=== PATIENT | male | born 1970 | race Caucasian/White ===

== ENCOUNTER 2017-03-09 10:46 | Emergency (ER) | payer OTHER ==
--- NOTE | 2017-03-09 12:32 | EDPHY ---
H & P Stated Complaint: LUQ pain since ;poss constipated;last [facility] Time Seen by Provider: 03/09/17 12:31 HPI/ROS: HPI: This is a 46-year-old male presents with Chief Complaint: Left flank pain since Friday;poss constipated;last nl BM Location: Left flank Quality: Pain Duration: 2 days Signs and Symptoms: no fever, + nausea, no vomiting, no hematemesis, no blood in stool, no abdominal bloating, no diarrhea, + back pain, no urinary symptoms, no testicular/groin pain, no indigestion, no chest pain, no shortness of breath Timing: Sudden, constant Severity: 8/10 Context: Patient has strong healthy, presents with left flank pain, that was sudden onset, constant in nature, nonradiating, moderate to severe intensity and currently 8/10 for the last 2 days. He reports he has been taking ibuprofen as well as his 's Percocet with transient relief of pain. Denies any fever/chills/hematuria/groin pain/testicular swelling/dysuria. He has not had any heavy lifting/injury. His last normal bowel movement was . He is passing flatus. Denies vomiting but does have some mild nausea this morning. He was able to eat normally yesterday. Today he has not eaten anything at all. No Prior abdominal surgical history or kidney stone. Modifying Factors: See above Comment: ROS: see HPI Constitutional: No fever, no chills, no weight loss Eyes: No blurred vision Respiratory: No shortness of breath, no cough Cardiovascular: No chest pain, no palpitations Gastrointestinal: + nausea, no vomiting, no diarrhea, no hematemesis, no blood in stool Genitourinary: No dysuria, no blood in urine Extremities: No myalgias, no edema Neurologic: No weakness, no numbness Skin: No rashes, no petechiae Hematologic: No bruising, no bleeding MEDICAL/SURGICAL/SOCIAL HISTORY: Medical history: Generally healthy. Does not take any regular medications. Surgical history: Denies Social history: . CONSTITUTIONAL: Extremely well-appearing and nontoxic adult white male, awake and alert, no obvious distress HEENT: Atraumatic and normocephalic, PERRL, EOMI. Tympanic membranes clear. Oropharynx clear, no exudate and moist pink mucosa. Airway patent. No lymphadenopathy. No meningismus. Cardiovascular: Normal S1/S2, regular rate, regular rhythm, without murmur rub or gallop. PULMONARY/CHEST: Symmetrical and nontender. Clear to auscultation bilaterally. Good air movement. No accessory muscle usage. ABDOMEN: Soft, nondistended, hypoactive bowel sounds heard, no rebound, no guarding, no peritoneal signs, no masses or organomegaly.+ left CVAT. EXTREMITIES: 2/2 pulses, strength 5/5, no deformities, no clubbing, no cyanosis or edema. NEUROLOGICAL: no focal neuro deficits. GCS 15. SKIN: Warm and dry, no erythema. no rash. Good capillary refill. Source: Patient Exam Limitations: No limitations - Personal History Current Tetanus Diphtheria and Acellular Pertussis (TDAP): Yes - Medical/Surgical History Other PMH: neg by hx - Social History Smoking Status: Never smoked Constitutional: Initial Vital Signs Temperature (C) 36.7 C 03/09/17 10:50 Heart Rate 94 03/09/17 10:50 Respiratory Rate 16 03/09/17 10:50 Blood Pressure 158/105 H 03/09/17 10:50 O2 Sat (%) 98 03/09/17 10:50 O2 Delivery Mode Room Air Allergies/Adverse Reactions: No Known Allergies Allergy (Unverified 03/09/17 10:50) Home Medications: Medication Instructions Recorded Polyethylene Glycol 3350 [Miralax 17 gm PO DAILY #7 pkt 03/09/17 17 gm (*)] Medical Decision Making - Diagnostics Imaging Results: Imaging Impressions Abdomen X-Ray 03/09/17 12:32 Impression: Query constipation with no other acute abdominal localizing features identified. ED Course/Re-evaluation: Acute abdominal series and urinalysis ordered Given Bentyl and Flexeril with adequate relief of pain Afebrile and no systemic signs. Patient advises that he would like to hold off on IV access to obtain labs and CT abdomen and pelvis scan imaging to start off. Urinalysis is completely unremarkable including no blood, RBCs, signs of infection X-ray my read shows no opacity, effusion, pneumothorax, obstruction. Shows large stool burden in the right colon with dilated loops of bowel. Reassessed patient who reports that his pain has significantly decreased and he prefers to go home with Mag citrate. This patient was seen under the supervision of my secondary supervising physician. I evaluated care for this patient independently. Discussed this patient with Dr. Sharma who did not see the patient. Differential Diagnosis: Abdominal pain including but not limited to diverticulitis, muscular strain, kidney stone, gastritis and urinary tract infection. - Data Points Laboratory Results: 03/09/17 13:07 Urine Color YELLOW Urine Appearance CLEAR Urine pH 5.0 (5.0-7.5) Ur Specific [place] 1.026 (1.002-1.030) Urine Protein NEGATIVE (NEGATIVE) Urine Ketones NEGATIVE (NEGATIVE) Urine Blood NEGATIVE (NEGATIVE) Urine Nitrate NEGATIVE (NEGATIVE) Urine Bilirubin NEGATIVE (NEGATIVE) Urine Urobilinogen NEGATIVE EU EU (0.2-1.0) Ur Leukocyte Esterase NEGATIVE (NEGATIVE) Urine Glucose NEGATIVE (NEGATIVE) Medications Given: Discontinued Medications Cyclobenzaprine HCl (Flexeril) 10 mg PO EDNOW ONE Stop: 03/09/17 13:22 Last Admin: 03/09/17 13:35 Dose: 10 mg Dicyclomine HCl (Bentyl) 20 mg PO EDNOW ONE Stop: 03/09/17 13:22 Last Admin: 03/09/17 13:35 Dose: 20 mg Magnesium Citrate (Magnesium Citrate) 150 ml PO ONCE ONE Stop: 03/09/17 13:41 Last Admin: 03/09/17 13:43 Dose: 150 ml Departure - Departure Disposition: Home, Routine, Self-Care Clinical Impression: Constipation Qualifiers: Constipation type: unspecified constipation type Qualified Code(s): K59.00 - Constipation, unspecified Condition: Good Instructions: Constipation (DC), Obstipation (ED) Additional Instructions: Please drink at least 8-10 glasses of water daily. Eat a diet high in fiber that includes fruits and vegetables. Take half of the Mag citrate and if no bowel movement; repeat in 6 hr. No improvement in abdominal pain in the next 24 hr or fever, intractable nausea vomiting and worsening abdominal pain; please return to the emergency room for evaluation. Referrals: RICARDO RICK [Primary Care Provider] - As per Instructions Prescriptions: Polyethylene Glycol 3350 [Miralax 17 gm (*)] 17 gm PO DAILY #7 pkt
[2017-03-09] MEDS ORDERED: DICYCLOMINE 10 MG CAP PO ONE (13:21)
[2017-03-09] MEDS ORDERED: CYCLOBENZAPRINE 10 MG TAB PO ONE (13:21)
[2017-03-09] MEDS ORDERED: MAGNESIUM CITRATE 300 ML BOTTLE PO ONE (13:40)
[2017-03-09] MEDS ORDERED: ONDANSETRON 4 MG/2 ML VIAL IVP ONE (14:17)
[2017-03-09] MEDS ORDERED: NS 1,000 ML IV ONE ×2 (14:17)
[2017-03-09 14:38] LABS: PLATELET COUNT 184 10^3/uL (150-400)
[2017-03-09] MEDS ORDERED: IOPAMIDOL (ISOVUE-300) 100 ML BTL ONE (14:53)
[2017-03-09] MEDS ORDERED: HYDROmorphONE/DILAUDID 1 MG/ML INJ ONE (15:37)
[2017-03-09] MEDS ORDERED: HYDROmorphONE/DILAUDID 1 MG/ML INJ IVP ONE (15:40)
[2017-03-09 15:45] VITALS: RESP 16; TEMP 98.1
[2017-03-09] MEDS ORDERED: TAMSULOSIN HCL 0.4 MG CAP PO ONE (16:00)
[2017-03-09] MEDS ORDERED: KETOROLAC 30 MG/1 ML SDV IVP ONE (16:06)
[2017-03-09] MEDS ORDERED: OXYCODONE/APAP 5/325MG PREPACK#4 BTL TAKEHOME ONE (17:02)
[2017-03-09] MEDS ORDERED: PROMETHAZINE 25 MG PREPACK #4 BTL TAKEHOME ONE (17:02)
[2017-03-09 17:48] VITALS: BP 133/87; PULSE 94; O2SAT 93
== END 2017-03-09 17:48 | disposition home or self-care (01) ==
DX: N20.1 Calculus of ureter (principal); K59.00 Constipation, unspecified; E86.9 Volume depletion, unspecified
CPT/HCPCS: 96374; J1170; J1885; J2405; Q9967

== ENCOUNTER 2017-03-14 12:54 | Observation (INO) | payer OTHER ==
--- NOTE | 2017-03-14 14:15 | SOAPPROG ---
<Ann Marie Cooper - Last Filed: 03/14/17 14:19> SOAP Progress Note Assessment/Plan: Assessment: Patient has a 5mm left proximal stone and pain along with severe constipation. He was admitted to the hospitalist for management. Plan: Will arrange ureteroscopy with Dr Jimenez this afternoon. I discussed with Chrissy Graves who did not feel it was necessary to see the patient at the bedside. Also discussed with Dr Grey. 03/14/17 14:19 Objective: Vital Signs Temp Pulse Resp BP Pulse Ox 36.6 C 14 153/96 H 94 03/14/17 13:37 03/14/17 13:37 03/14/17 13:37 03/14/17 13:37 ICD10 Worksheet Patient Problems: Problems Problem Status Onset Ureterolithiasis Acute <Reilly Etienne - Last Filed: 03/18/17 13:55> SOAP Progress Note Assessment/Plan: Assessment: stone as noted Plan: as noted 03/18/17 13:53 Subjective: stone Objective: Vital Signs Temp Pulse Resp BP Pulse Ox 36.5 C 96 18 121/94 H 91 L 03/15/17 08:36 03/15/17 08:36 03/15/17 08:36 03/15/17 08:36 03/15/17 08:36 Laboratory Results 03/14/17 15:00 03/15/17 04:25 PT 14.2 SEC (12.0-15.0) 03/14/17 15:00 INR 1.08 (0.83-1.16) 03/14/17 15:00 Physical Exam - Physical Exam General Appearance: WD/WN ICD10 Worksheet - ICD10 Problem Qualifiers (1) Ureterolithiasis
[2017-03-14] MEDS ORDERED: OXYCODONE/APAP 5/325 TAB PO PRN (14:32)
[2017-03-14] MEDS ORDERED: BISACODYL 10 MG SUPP PR PRN (14:40)
[2017-03-14] MEDS ORDERED: LACTULOSE 20 GM/30 ML UDCUP PO PRN (14:40)
[2017-03-14] MEDS ORDERED: POLYETHYLENE GLYCOL 3350 17 GM PKT PO PRN (14:40)
[2017-03-14] MEDS ORDERED: MAGNESIUM HYDROXIDE 30 ML UDCUP PO PRN (14:40)
[2017-03-14] MEDS ORDERED: 1/2 NS 1,000 ML IV SCH (14:45)
[2017-03-14] MEDS ORDERED: ONDANSETRON DISINTEGRATING 4 MG TAB PO PRN (14:52)
[2017-03-14] MEDS ORDERED: ONDANSETRON 4 MG/2 ML VIAL IVP PRN (14:52)
[2017-03-14] MEDS: traMADol 50 MG TAB PO PRN (15:08)
[2017-03-14] MEDS: ACETAMINOPHEN 500 MG TAB PO PRN (15:09)
[2017-03-14 15:18] LABS: PLATELET COUNT 257 10^3/uL (150-400)
[2017-03-14 15:26] LABS: INR 1.08 (0.83-1.16); PROTIME(PATIENT) 14.2 SEC (12.0-15.0)
--- NOTE | 2017-03-14 15:28 | GHP ---
[f rep st] HISTORY AND PHYSICAL DATE OF ADMISSION: 03/14/2017 CHIEF COMPLAINT: Renal stone. HISTORY OF PRESENT ILLNESS: This is a 46-year-old man, has had a renal stone for about the last week . He was sent in from urology office for a ureteroscopy. He initially presented to the emergency de partment on March 09 at which time, he was found to have a proximal 5 x 5 mm renal stone. He was discharged with Percocet, Toradol with followup with Urology. It was also noted that he had a negati ve urinalysis at that time, mild leukocytosis with a white count of 12 and a creatinine of 1.6. He f ollowed up with Ann Marie Cooper today, pain was still not controlled. He had still not passed the re nal stone. He was thus sent in as a direct admission to the hospital for ureteroscopy. His pain is described as left-sided, sharp, stabbing, radiating to his flank. He has not had any hematuria. He has also not had any fevers or foul-smelling urine. He has noted a slight decrease in his urine outp ut today; however, it had been normal until today. PAST MEDICAL/SURGICAL HISTORY: 1. Adenoidectomy. 2. 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 MEDICATIONS: Please see medication reconciliation. ALLERGIES: No known drug allergies. FAMILY HISTORY: Reviewed and noncontributory. SOCIAL HISTORY: He occasionally drinks alcohol. He does not smoke. REVIEW OF SYSTEMS: Ten-point review of systems is conducted and is negative except per HPI. PHYSICAL EXAMINATION: VITAL SIGNS: Blood pressure 153/96, respiration rate 14, saturating 94% on ro om air, temperature is 36.6. GENERAL: The patient is a very pleasant man who is resting comfortably, in no acute distress HEENT: Shows him to be normocephalic, atraumatic. CARDIOVASCULAR: Shows regu lar rate and rhythm. No murmurs, rubs, or gallops. PULMONARY: Shows lungs clear to auscultation bi laterally. ABDOMEN: Shows him to have a heating pad on the left side of his abdomen. He is holding it. It is, however, soft, nontender. It is mildly distended. He has pain mostly in the left flank area. SKIN: Shows no rash. : Shows no Coronel. NEUROLOGIC: Shows him to be alert and oriented x3. He is moving all extremities. PSYCHIATRIC: Shows normal mood and affect. LABORATORY DATA: Labs are reviewed and summarized as per HPI. DATA: 1. I reviewed his chart including his ED visit as well as Ann Marie Cooper, PACs note. 2. I reviewed his abdominal CT scan that shows a left proximal ureteral calculus with moderate left- sided hydronephrosis measuring 5.5 mm longitudinally. This was a scan that was done with contrast. IMPRESSION/PLAN: 1. Left proximal ureterolithiasis: Plan ureteroscopy today. Appreciate Dr. Jimenez's assistance. Wi ll make him n.p.o. pending this. Will give him half normal saline. Will provide pain control with t ramadol, Percocet, IV morphine. 2. Acute kidney injury: This was noted on the . He did receive Toradol as well as IV contrast on that visit. He has only taken 1 dose of Toradol that was prescribed. Will recheck a stat basic m etabolic panel, and assess his kidney function. Will avoid nephrotoxins and provide IV hydration. 3. Constipation: This is quite severe in the setting of Percocet use. Will provide him an aggressi ve bowel regimen. /[id number]/MODL
[2017-03-14] MEDS ORDERED: NS 1,000 ML IV ONE (16:00)
[2017-03-14] MEDS ORDERED: FAMOTIDINE 20 MG TAB PO PRN (16:02)
[2017-03-14] MEDS ORDERED: ceFAZolin 2 GM/DEXTROSE 100 ML IV ONE (17:30)
[2017-03-14] MEDS ORDERED: ceFAZolin 2 GM/SWFI 2 GM/20 ML SYR IVP ONE (17:30)
[2017-03-14] MEDS ORDERED: ceFAZolin 2 GM/SWFI 20 ML SYR IVP ONE (20:07)
[2017-03-14] MEDS ORDERED: LR 1,000 ML IV ONE (20:13)
[2017-03-14] MEDS ORDERED: fentaNYL 100 MCG/2 ML INJ ONE ×2 (20:38→21:00)
[2017-03-14] MEDS ORDERED: MIDAZOLAM 2 MG/2 ML VIAL ONE (20:39)
[2017-03-14] MEDS ORDERED: PROPOFOL/EMULSION 500 MG/50 ML BOTTLE IV ONE (20:39)
[2017-03-14] MEDS ORDERED: TAMSULOSIN HCL 0.4 MG CAP PO SCH (21:00)
--- NOTE | 2017-03-14 21:04 | PDANEPAE ---
ANE Past Medical History - Pulmonary History Hx Oxygen in Use at Home: No Hx Sleep Apnea: No Sleep Apnea Screening Result - Last Documented: Negative - Endocrine History Hx Diabetes: No ANE Review of Systems Review of Systems: ANE Patient History - Allergies Allergies/Adverse Reactions: No Known Allergies Allergy (Unverified 03/09/17 10:50) - Home Medications Home Medications: Ranitidine HCl 150 mg PO DAILY PRN 03/14/17 [Last Taken 03/08/17] Tamsulosin HCl [Tamsulosin HCl] 0.4 mg PO HS 03/14/17 [Last Taken 03/14/17 06:00 ] - NPO status NPO Since - Liquids (Date): 03/14/17 NPO Since - Liquids (Time): 11:00 NPO Since - Solids (Date): 03/14/17 NPO Since - Solids (Time): 08:00 - Smoking Hx Smoking Status: Never smoked KRISTYN Labs/Vital Signs - Labs Result Diagrams: 03/14/17 15:00 03/14/17 15:00 - Vital Signs Blood Pressure: 151/106 Heart Rate: 77 Respiratory Rate: 20 O2 Sat (%): 97 Height: 172.72 cm Weight: 74.843 kg ANE Physical Exam - Airway Neck exam: FROM Mallampati Score: Class 1 Mouth exam: normal dental/mouth exam - Pulmonary Pulmonary: no respiratory distress, no rales or rhonchi, clear to auscultation - Cardiovascular Cardiovascular: regular rate and rhythym, no murmur, rub, or gallop - ASA Status ASA Status: II, E ANE Anesthesia Plan Anesthesia Plan: GA w LMA
[2017-03-14] MEDS ORDERED: RANITIDINE 50 MG/2 ML VIAL ONE (21:06)
[2017-03-14] MEDS ORDERED: DEXAMETHASONE 4 MG/ML VIAL ONE (21:06)
[2017-03-14] MEDS ORDERED: ONDANSETRON 4 MG/2 ML VIAL ONE (21:06)
[2017-03-14] MEDS ORDERED: KETOROLAC 30 MG/1 ML SDV ONE (21:06)
[2017-03-14] MEDS ORDERED: METOCLOPRAMIDE 10 MG/2 ML VIAL ONE (21:06)
[2017-03-14] MEDS ORDERED: LIDOCAINE 2% 5 ML SDV ONE (21:06)
[2017-03-14] MEDS ORDERED: IOTHALAMATE MEG (CYSTO-CONRAY II) 250 ML VIAL BLADIN ONE (21:23)
[2017-03-14] MEDS ORDERED: LR 500 ML IV PRN (21:45)
[2017-03-14] MEDS ORDERED: METOCLOPRAMIDE 10 MG/2 ML VIAL IVP PRN (21:45)
[2017-03-14] MEDS ORDERED: DEXAMETHASONE 4 MG/ML VIAL IVP PRN (21:45)
[2017-03-14] MEDS ORDERED: PROMETHAZINE HCL 25 MG/ML INJ IVP PRN (21:45)
[2017-03-14] MEDS ORDERED: ALBUTEROL 3 ML DEYVIAL IH PRN (21:45)
[2017-03-14] MEDS ORDERED: fentaNYL 100 MCG/2 ML INJ IVP PRN (21:45)
[2017-03-14] MEDS ORDERED: NALOXONE HCL 0.4 MG/ML INJ IVP PRN (21:45)
--- NOTE | 2017-03-14 21:48 | POSTANESTH ---
Post Anesthetic Evaluation Cardiovascular Status: Normal, Stable, Similar to Pre-Op Cond Respiratory Status: Normal, Stable, Similar to Pre-op Cond. Level of Consciousness/Mental Status: Can Participate in Eval Pain Control: Adequate, Prn Tx Ordered Nausea/Vomiting Control: Adequate, Prn Tx Ordered Complications Possibly Related to Anesthesia: None Noted
[2017-03-14] MEDS: SENNOSIDES/DOCUSATE SODIUM TAB PO SCH (23:25)
[2017-03-15 08:37] VITALS: BP 121/94; PULSE 96; RESP 18; TEMP 97.7; O2SAT 91
[2017-03-15] MEDS: ACETAMINOPHEN 500 MG TAB PO PRN (08:52)
[2017-03-15] MEDS: SENNOSIDES/DOCUSATE SODIUM TAB PO SCH (08:54)
[2017-03-15] MEDS: traMADol 50 MG TAB PO PRN (08:55)
--- NOTE | 2017-03-15 09:41 | GOP ---
[f rep st] OPERATIVE REPORT DATE OF OPERATION: SURGEON: Brennan Jimenez MD PREOPERATIVE DIAGNOSIS: Left obstructing ureteral stone with hydronephrosis, severe, and severe noah l colic. POSTOPERATIVE DIAGNOSIS: Left obstructing ureteral stone with hydronephrosis, severe, and severe hermelinda al colic. PROCEDURE PERFORMED: FINDINGS: SPECIMENS: Stone sent to Pathology for analysis. ESTIMATED BLOOD LOSS: 2 cc. INDICATIONS: The patient is a very pleasant 46-year-old male with a left obstructing ureteral stone, severe flank pain, and he does not feel that he is going to be able to manage this through the nd. He is in severe pain, and he was admitted for pain control, and pain control was poor. Therefor e, we planned an operation to ensure his comfort and to prevent sepsis. A CT scan did note severe hy dronephrosis and a left 5 mm obstructing stone. DESCRIPTION OF PROCEDURE: Patient was identified by name, medical record number, wrist band. Amor t to the operating room, laid supine on the table, prepped and draped in standard surgical fashion. He was placed in lithotomy position. A cystoscope was inserted into the bladder. The entire bladder was visualized. Both ureteral orifices were noted to be in normal location. A 0.038 Glidewire was inserted into the left ureter x2, and ureteroscope was passed up to the level of the stone. The enti re ureter was visualized to ensure no other stones. There was a large amount of debris behind the st one. The stone was laser lithotripsied into sand. Largest fragments were removed. A retrograde pyelogram was performed after the stone was removed, indicating no injury to the ureter, and a JJ stent was passed and noted to curl in the renal pelvis and bladder. Bladder was emptied. Uro-Jet was applied. The patient was awakened from anesthesia, brought to the recovery room in stabl e condition. URINE OUTPUT: Not recorded. DRAINS: JJ stent placed on the left side. /[id number]/MODL
[2017-03-15] MEDS ORDERED: FLU VACC QS 2017-18 (3YR+)/PF 0.5 ML SYR (FLUARIX QUAD) IM ONE (10:50)
--- NOTE | 2017-03-15 13:50 | ASDISCHSUM ---
Discharge Information Plan Status:Home with No Needs Medically Cleared to Leave:03/14/2017 Discharge Date:03/15/2017 01:16 PM CM D/C Disposition:Home, Routine, Self-Care ADT D/C Disposition:Home, Routine, Self-Care Projected Discharge Date:03/15/2017 01:16 PM Transportation at D/C:Self Discharge Delay Reason: Follow-Up Date:03/15/2017 01:16 PM Discharge Slot: Final Diagnosis: Placement Information Patient Contact Information Contact Name:LIGIA Relationship: Address:[address] Work Phone: City:[place] Alternate Phone: [facility]/Zip Code:[place] [address] Email: Financial Information Financial Class:HMO and PPO Plans Primary Plan Desc:[facility] CU PLAN Primary Plan Number:[id number] Secondary Plan Desc: Secondary Plan Number: Assessment Information Case Management Discharge Plan Note Case Management Discharge Discharge Order Complete? Answers: Yes Patient to Obtain Answers: Independently Medications Transportation Arranged Answers: Family/Friends Discharge Comments Notes: 03/15/2017 Case Management Note Pt does not require any needs from case management d/t age and employment status. Discharged home independent. Date Signed: 03/15/2017 11:56 AM Electronically Signed By:Zaira Álvarez RN Intervention Information
--- NOTE | 2017-03-16 04:19 | GDS ---
[f rep st] DISCHARGE SUMMARY DISCHARGE DIAGNOSES: Include: 1. Acute proximal ureterolithiasis on the left. 2. Acute kidney injury. 3. Chronic constipation secondary to narcotics. 4. Dyspepsia, chronic. HISTORY OF PRESENT ILLNESS: A 46-year-old male with known history of renal stones, admitted for elec tive lithotripsy. For details of patient's initial presentation, please see the history and physical dated 03/14/2017. CONSULTATIVE SERVICES: Include Urology. PROCEDURES ON THIS PATIENT: On 03/14/2017, patient underwent ureteroscopy and lithotripsy of left ur eterolithiasis without complication. A JJ stent was placed on the left. HOSPITAL COURSE BY ISSUE: 1. Acute left ureterolithiasis. The patient was admitted, hydrated, made n.p.o. in preparation for procedure, had successful ureteroscopy and lithotripsy with nearly resolved pain. The patient is shemar ng discharged with outpatient urologic followup and p.r.n. pain medications. 2. Acute kidney injury secondary to acute hydronephrosis and ureterolithiasis. The patient's creati nine is 1.3 post procedure and post hydration. The patient again will follow in outpatient urology f or lab checks. He has been instructed to maintain good nutritional and hydration in the outpatient s etting. MEDICATIONS AT THE TIME OF DISPOSITION: Please reference med rec printed on 03/15/2017. FOLLOWUP APPOINTMENTS: Include with Dr. Jimenez next week for his first post-procedural followup and l ab check. PENDING STUDIES: At the time of this dictation are none. I spent greater than 30 minutes in the planning and coordination of this discharge. /[id number]/MODL
--- NOTE | 2017-03-18 13:38 | GCON ---
[f rep st] CONSULTATION CONSULTATION PROGRESS NOTE DATE OF CONSULTATION: 03/14/2017 I evaluated the patient prior to surgery. I found no changes to the progress note or the progress no te from Ann Marie Cooper on March 14. He is having flank pain, severe, and is interested in having the stone removed. Labs are normal. OBJECTIVE: VITAL SIGNS: Stable. ABDOMEN: Soft, nondistended, nontender. LOWER EXTREMITIES: Nor lower extremity edema. HEENT: Head: Normocephalic, atraumatic. ASSESSMENT AND PLAN: 2.0 and 1.04 mm of stones. /[id number]/MODL
== END 2017-03-15 13:16 | disposition home or self-care (01) ==
LOC: F1N 13:27 → INTOOBSV 13:27
PROVIDERS: ADMIT Internal Medicine; ATTEND Hospitalist
DX: N13.2 Hydronephrosis with renal and ureteral calculous obstruction (principal); N17.9 Acute kidney failure, unspecified; K59.00 Constipation, unspecified; R10.13 Epigastric pain; Z87.442 Personal history of urinary calculi; Z23 Encounter for immunization
CPT/HCPCS: 52356; 76001; 90471; C1758; C1769; G0378; 82365-90; C2625; G0008; J0690; J1100; J1885; J2250; J2405; J2704; J2765; J2780; J3010; Q9961